=== PATIENT | male | born 1955 | race Caucasian/White ===

== ENCOUNTER 2018-01-18 10:26 | Outpatient (CLI) | payer OTHER | END 2018-01-18 14:35 | disposition home or self-care (01) | LOC: MRI 10:26 | DX: K51.811 Other ulcerative colitis with rectal bleeding (principal); K51.813 Other ulcerative colitis with fistula; R19.5 Other fecal abnormalities; R19.7 Diarrhea, unspecified; L29.0 Pruritus ani | CPT/HCPCS: 72197; A9579 ==